=== PATIENT | male | born 1960 | race Caucasian/White ===

== ENCOUNTER 2019-01-31 15:08 | Inpatient (IN) | payer MEDICAID, OTHER ==
[~2019-01-31] VITALS: Ht 190.5 cm; Wt 91.0 kg
[2019-02-06 09:36] VITALS: BP 107/75
== END 2019-02-06 12:05 | disposition home or self-care (01) | DRG 224 ==
LOC: ED 17:44 → EDIP 18:37 → ED 18:52 → 5SO 19:52 → DCLOUNGE 02-06 11:46
PROVIDERS: ADMIT Internal Medicine; ATTEND Internal Medicine
PROC: 4A023N7 Measurement of Cardiac Sampling and Pressure, Left Heart, Percutaneous Approach (ICD-10-PCS; principal; 2019-02-04)
PROC: B2111ZZ Fluoroscopy of Multiple Coronary Arteries using Low Osmolar Contrast (ICD-10-PCS; 2019-02-04)
PROC: 0JH608Z Insertion of Defibrillator Generator into Chest Subcutaneous Tissue and Fascia, Open Approach (ICD-10-PCS; 2019-02-05)
PROC: 02HK3KZ Insertion of Defibrillator Lead into Right Ventricle, Percutaneous Approach (ICD-10-PCS; 2019-02-05)
PROC: 02H63KZ Insertion of Defibrillator Lead into Right Atrium, Percutaneous Approach (ICD-10-PCS; 2019-02-05)
DX: I44.2 Atrioventricular block, complete (principal); I50.21 Acute systolic (congestive) heart failure; Q21.1 Atrial septal defect; I42.9 Cardiomyopathy, unspecified; I47.1 Supraventricular tachycardia; D75.89 Other specified diseases of blood and blood-forming organs; I08.0 Rheumatic disorders of both mitral and aortic valves; N18.3 Chronic kidney disease, stage 3 (moderate); M79.89 Other specified soft tissue disorders; R55 Syncope and collapse; R71.8 Other abnormality of red blood cells; R94.39 Abnormal result of other cardiovascular function study; Z79.82 Long term (current) use of aspirin; Z79.899 Other long term (current) drug therapy; Z82.49 Family history of ischemic heart disease and other diseases of the circulatory system; Z87.891 Personal history of nicotine dependence; Z80.1 Family history of malignant neoplasm of trachea, bronchus and lung
CPT/HCPCS: 33249; 36415; 93017; 93458; 99285; J3490; 0399T; 71045; 71046; 78452; 80048; 80053; 80061; 82040; 82607; 83735; 83880; 84484; 85025; 85379; 93005; 93306; 96374; 99156; 99157; C1721; C1769; C1779; C1892; C1894; C1895; G0378; J0583; J0690; J1644; J1940; J2250; J2785; J3010; A9502; C9898; Q9967

== ENCOUNTER 2019-02-12 10:41 | Outpatient (CLI) | payer MEDICAID ==
[~2019-02-12 10:41] MED LIST: ACET325T26 PO; ASPI-515 PO; ATOR20TA37 PO; CARV6.2512 PO; FURO20TA3 PO; LISI5TAB7 PO; SPIR25TA5 PO
[2019-03-19] MEDS ORDERED: CARV12.52 PO (13:11)
[2019-03-19] MEDS ORDERED: FURO20TA3 PO (13:11)
== END 2019-02-12 23:59 | disposition home or self-care (01) ==
LOC: CFH 10:41
PROVIDERS: ATTEND Internal Medicine Cardiovascular Disease
DX: Z45.018 Encounter for adjustment and management of other part of cardiac pacemaker (principal); Z95.812 Presence of fully implantable artificial heart
CPT/HCPCS: 71046

== ENCOUNTER 2019-02-15 07:04 | Observation (INO) | payer MEDICAID ==
[~2019-02-15] VITALS: Ht 190.5 cm; Wt 95.6 kg
[2019-02-15] MEDS: SODIUM CHLORIDE 0.9% 1,000 ML IV SCH ×3 (07:38→23:38)
[2019-02-15 07:40] VITALS: BP 113/63
[2019-02-15 08:58] LABS: ANION GAP 8 mmol/L (5-15); CALCIUM 8.8 mg/dL (8.5-10.1); CHLORIDE 108 mmol/L (98-107); CREATININE 1.76 mg/dL (0.7-1.3)
[2019-02-15] MEDS ORDERED: MIDAZOLAM 1 MG/ML, 5ML ONE (09:06)
[2019-02-15] MEDS ORDERED: FENTANYL PF 100 MCG/2ML ONE ×2 (09:06→09:33)
[2019-02-15] MEDS ORDERED: CEFAZOLIN PMX 1GM/50ML 50 ML ONE (09:06)
[2019-02-15] MEDS ORDERED: CEFAZOLIN 1,000 MG ONE (09:07)
[2019-02-15] MEDS ORDERED: LIDOCAINE 2%, 20ML ONE (09:07)
[2019-02-15] MEDS ORDERED: MIDAZOLAM 1 MG/ML, 2ML ONE (09:33)
[2019-02-15] MEDS ORDERED: HOLD MEDICATION MC PRN (10:30)
[2019-02-15] MEDS ORDERED: ACETAMINOPHEN 325 MG TABLET PO PRN (10:30)
[2019-02-15] MEDS ORDERED: HYDROcodone/APAP 5/325 TABLET PO PRN (10:30)
[2019-02-15] MEDS ORDERED: ZOLPIDEM 5MG TABLET PO PRN (10:30)
[2019-02-15 13:20] VITALS: BP 107/65
[2019-02-15] MEDS: CEFAZOLIN PMX 1GM/50ML 50 ML IVPB SCH (17:01)
[2019-02-15] MEDS: CARVEDILOL 6.25 MG TABLET PO SCH (17:12)
[2019-02-15 17:15] VITALS: BP 113/77
[2019-02-15 19:00] VITALS: BP 124/74
[2019-02-15] MEDS: SODIUM CHLORIDE FLUSH 10ML SYR IVF SCH (20:50)
[2019-02-15] MEDS ORDERED: ATORVASTATIN 20 MG TABLET PO SCH (21:00)
[2019-02-15] MEDS: LISINOPRIL 5 MG TABLET PO SCH (21:30)
[2019-02-16 00:27] VITALS: BP 114/75
[2019-02-16] MEDS: CEFAZOLIN PMX 1GM/50ML 50 ML IVPB SCH ×2 (01:10→08:33)
[2019-02-16 05:49] VITALS: BP 116/77
[2019-02-16] MEDS: CARVEDILOL 6.25 MG TABLET PO SCH (05:51)
[2019-02-16 07:00] VITALS: BP 114/73
[2019-02-16] MEDS: SODIUM CHLORIDE 0.9% 1,000 ML IV SCH (07:10)
[2019-02-16] MEDS: LISINOPRIL 5 MG TABLET PO SCH (08:32)
[2019-02-16] MEDS: SODIUM CHLORIDE FLUSH 10ML SYR IVF SCH (08:33)
[2019-02-16] MEDS ORDERED: SPIRONOLACTONE 25 MG TABLET PO SCH (09:00)
[2019-02-16] MEDS ORDERED: FUROSEMIDE 20 MG TABLET PO SCH (09:00)
[2019-02-16] MEDS ORDERED: ASPIRIN 81 MG TABLET EC PO SCH (09:00)
[2019-03-19] MEDS ORDERED: CARV12.52 PO (13:11)
[2019-03-19] MEDS ORDERED: FURO20TA3 PO (13:11)
== END 2019-02-16 10:32 | disposition home or self-care (01) ==
LOC: CACL 07:04 → 5SO 10:38 → CACL 23:40 → 5SO 23:40 → DCLOUNGE 02-16 10:25
PROVIDERS: ADMIT Internal Medicine Cardiovascular Disease; ATTEND Internal Medicine Cardiovascular Disease
DX: T82.120A Displacement of cardiac electrode, initial encounter (principal); I42.9 Cardiomyopathy, unspecified; I44.1 Atrioventricular block, second degree; I50.21 Acute systolic (congestive) heart failure; R00.0 Tachycardia, unspecified; I51.7 Cardiomegaly; N18.3 Chronic kidney disease, stage 3 (moderate); R71.8 Other abnormality of red blood cells; I34.0 Nonrheumatic mitral (valve) insufficiency; Z95.810 Presence of automatic (implantable) cardiac defibrillator; Z13.6 Encounter for screening for cardiovascular disorders
CPT/HCPCS: 33215; 36415; 71045; 80048; 93005; 96365; 96366; 99156; 99157; G0378; J0690; J2250; J3010; J3490

== ENCOUNTER → 2019-08-31 | Outpatient (CLI) | payer MEDICAID ==
[~2019-08-31] MED LIST changes: +CARV12.52 PO
[2019-08-31 09:34] LABS: BASOPHILS # (AUTO) 0.04 x10^3/uL (0-0.1); BASOPHILS % (AUTO) 1 % (0-1); EOSINOPHILS # (AUTO) 0.23 x10^3/uL (0-0.4); EOSINOPHILS % (AUTO) 3 % (1-7); LYMPHOCYTES # (AUTO) 2.15 x10^3/uL (1-3.4); LYMPHOCYTES % (AUTO) 31 % (22-44); MD NO; MEAN CORPUSCULAR HEMOGLOBIN 32.1 pg (27.5-34.5); MEAN CORPUSCULAR VOLUME 94.4 fL (81-97); MEAN PLATELET VOLUME 7.1 fL (7.4-10.4); MONOCYTES # (AUTO) 0.52 x10^3/uL (0.2-0.8); MONOCYTES % (AUTO) 7 % (2-9); NEUTROPHILS # (AUTO) 4.09 x10^3/uL (1.8-6.8); NEUTROPHILS % (AUTO) 58 % (42-75); PLATELET COUNT 236 x10^3/uL (130-400); RED BLOOD COUNT 4.82 x10^6/uL (4.38-5.82); RED CELL DISTRIBUTION WIDTH 12.5 % (9.4-14.8)
[2019-08-31 09:40] LABS: ALANINE AMINOTRANSFERASE 33 U/L (12-78); ALBUMIN 3.9 g/dL (3.4-5.0); ANION GAP 4 mmol/L (5-15); CALCIUM 8.9 mg/dL (8.5-10.1); CHLORIDE 107 mmol/L (98-107); CHOLESTEROL, TOTAL 128 mg/dL (140-239); CREATININE 1.53 mg/dL (0.7-1.3)
[2019-08-31 09:43] LABS: ALKALINE PHOSPHATASE 59 U/L (45-117); BILIRUBIN,TOTAL 0.9 mg/dL (0.2-1.0); HDL CHOL % 33 % (26-37); HDL CHOLESTEROL (DIRECT) 42 mg/dL (40-60); LDL CHOLESTEROL,CALCULATED 71 mg/dL (54-169); LDL/HDL RATIO 1.7 (0.5-3.0); TOTAL PROTEIN 7.3 g/dL (6.4-8.2); TRIGLYCERIDES 73 mg/dL (50-200); VLDL CHOLESTEROL 15 mg/dL (0-25)
== END | disposition home or self-care (01) ==
LOC: LAB 08:47
PROVIDERS: ATTEND Internal Medicine Cardiovascular Disease
DX: I10 Essential (primary) hypertension (principal); I42.9 Cardiomyopathy, unspecified; I47.2 Ventricular tachycardia; N52.8 Other male erectile dysfunction; Z95.810 Presence of automatic (implantable) cardiac defibrillator
CPT/HCPCS: 36415; 80053; 80061; 85025

== ENCOUNTER 2019-10-24 08:25 | Outpatient (CLI) | payer MEDICAID | END 2019-10-24 23:59 | disposition home or self-care (01) | LOC: CFH 08:25 | PROVIDERS: ATTEND Internal Medicine Cardiovascular Disease | DX: I08.8 Other rheumatic multiple valve diseases (principal); I25.3 Aneurysm of heart | CPT/HCPCS: 93306; 93356 ==

== ENCOUNTER → 2020-10-15 | Outpatient (CLI) | payer MEDICAID ==
[~2020-10-15] MED LIST changes: -ASPI-515 PO; +ASPI-963 PO
== END | disposition home or self-care (01) ==
LOC: CVU 06:43
PROVIDERS: ATTEND Internal Medicine Cardiovascular Disease
DX: I08.3 Combined rheumatic disorders of mitral, aortic and tricuspid valves (principal); I42.9 Cardiomyopathy, unspecified
CPT/HCPCS: 93306; 93356

== ENCOUNTER 2020-11-11 18:54 | Emergency (ER) | payer MEDICAID ==
[~2020-11-11] VITALS: Ht 190.5 cm; Wt 90.6 kg
--- NOTE | 2020-11-11 19:29 | NUR ---
PT AMBULATORY TO ROOM 13 W/ C/O N/V/D. PT STATES HE IS HAVING 10-15 BM'S PER DAY. EMESIS STARTED TODAY 3-4 TIMES. PT DENIES ABD PAIN. STATES HE WAS SEEN HERE A FEW DAYS AGO FOR SAME. PT RESTING ON MARK [facility]. NADN. MONITORS APPLIED. VSS. WARM BLANKET PROVIDED.
[2020-11-11] MEDS ORDERED: FAMOTIDINE 20 MG/2 ML ONE (20:26)
[2020-11-11] MEDS ORDERED: ONDANSETRON 2MG/ML, 2ML ONE ×2 (20:26→23:17)
[2020-11-11] MEDS ORDERED: ONDANSETRON 2MG/ML, 2ML IVPush ONE ×2 (20:30→23:30)
[2020-11-11] MEDS ORDERED: SODIUM CHLORIDE FLUSH 10ML SYR IVF ONE (20:30)
[2020-11-11] MEDS ORDERED: FAMOTIDINE 20 MG/2 ML IVPush ONE (20:30)
[2020-11-11] MEDS ORDERED: SODIUM CHLORIDE 0.9% 1,000ML IVBOLUS ONE ×2 (20:30)
[2020-11-11 20:59] LABS: BASOPHILS % (AUTO) 1 % (0-1); EOSINOPHILS % (AUTO) 0 % (1-7); LYMPHOCYTES % (AUTO) 23 % (22-44); MD NO; MEAN CORPUSCULAR HEMOGLOBIN 31.1 pg (27.5-34.5); MEAN CORPUSCULAR HGB CONC 33.6 g/dL (33.2-36.2); MEAN PLATELET VOLUME 7.7 fL (7.4-10.4); MONOCYTES % (AUTO) 10 % (2-9); NEUTROPHILS % (AUTO) 66 % (42-75); PLATELET COUNT 136 x10^3/uL (130-400); RED CELL DISTRIBUTION WIDTH 13.2 % (9.4-14.8)
--- NOTE | 2020-11-11 21:03 | NUR ---
REPORT GIVEN TO WALTER CASTRO.
[2020-11-11 21:08] LABS: ALBUMIN 3.3 g/dL (3.4-5.0); ANION GAP 4 mmol/L (5-15); CALCIUM 7.9 mg/dL (8.5-10.1); CHLORIDE 104 mmol/L (98-107)
[2020-11-11 21:12] LABS: ALANINE AMINOTRANSFERASE 31 U/L (12-78); ALKALINE PHOSPHATASE 46 U/L (45-117); BILIRUBIN,TOTAL 0.4 mg/dL (0.2-1.0); CREATININE 1.31 mg/dL (0.7-1.3); TOTAL PROTEIN 6.7 g/dL (6.4-8.2)
[2020-11-11 22:26] VITALS: BP 109/56
--- NOTE | 2020-11-11 22:27 | NUR ---
PT AMBULATES TO RESTROOM WITH STEADY GAIT.
== END 2020-11-12 00:12 | disposition home or self-care (01) ==
LOC: ED 20:22
DX: R11.2 Nausea with vomiting, unspecified (principal); E86.0 Dehydration; R19.7 Diarrhea, unspecified; I11.0 Hypertensive heart disease with heart failure; I50.9 Heart failure, unspecified; Z95.0 Presence of cardiac pacemaker
CPT/HCPCS: 36415; 80053; 83690; 85025; 96361; 96374; 96375; 96376; 99284; J2405; J7030

== ENCOUNTER 2021-02-04 17:18 | Outpatient (CLI) | payer MEDICAID | END 2021-02-04 23:59 | disposition home or self-care (01) | LOC: LAB 17:18 | PROVIDERS: ATTEND Internal Medicine | DX: Z02.9 Encounter for administrative examinations, unspecified (principal) ==

== ENCOUNTER 2021-02-22 20:37 | Observation (INO) | payer MEDICAID ==
[~2021-02-22] VITALS: Ht 190.5 cm; Wt 88.0 kg
--- NOTE | 2021-02-22 20:53 | NUR ---
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 THEY WILL BE SENDING REP FOR PACER INTERRIGATION.
[2021-02-22] MEDS ORDERED: DOLU1TAB2 PO (21:10)
--- NOTE | 2021-02-22 21:10 | NUR ---
pt states he was getting out of shower x 30 min ago and aicd went off x 1,
--- NOTE | 2021-02-22 21:10 | NUR ---
PAD TUFTER: BIOTRONIC REP CALLED BACK STATING THEY WILL BE HERE SHORTLY.
[2021-02-22 21:39] LABS: ALANINE AMINOTRANSFERASE 50 U/L (12-78); ALBUMIN 3.2 g/dL (3.4-5.0); ANION GAP 6 mmol/L (5-15); CALCIUM 8.2 mg/dL (8.5-10.1); CHLORIDE 104 mmol/L (98-107); CREATININE 1.25 mg/dL (0.7-1.3)
[2021-02-22 21:40] LABS: BASOPHILS % (AUTO) 1 % (0-1); EOSINOPHILS % (AUTO) 3 % (1-7); LYMPHOCYTES % (AUTO) 33 % (22-44); MEAN CORPUSCULAR HEMOGLOBIN 29.8 pg (27.5-34.5); MEAN CORPUSCULAR HGB CONC 33.1 g/dL (33.2-36.2); MEAN PLATELET VOLUME 7.2 fL (7.4-10.4); MONOCYTES % (AUTO) 13 % (2-9); NEUTROPHILS % (AUTO) 50 % (42-75); PLATELET COUNT 202 x10^3/uL (130-400); RED BLOOD COUNT 4.39 x10^6/uL (4.38-5.82); RED CELL DISTRIBUTION WIDTH 13.7 % (9.4-14.8)
[2021-02-22 21:43] LABS: ALKALINE PHOSPHATASE 79 U/L (45-117); BILIRUBIN,TOTAL 0.4 mg/dL (0.2-1.0); TROPONIN I < 0.015 ng/mL (0.000-0.045)
--- NOTE | 2021-02-22 21:54 | NUR ---
TRANSPORTATION PLANNER: BIOTRONIC REP AT BS AT THIS TIME.
--- NOTE | 2021-02-22 21:58 | NUR ---
interagator here for pacemaker interagation
--- NOTE | 2021-02-22 23:10 | NUR ---
interagation complete md at bedside
--- NOTE | 2021-02-22 23:37 | NUR ---
pt given food npo after midnight
--- NOTE | 2021-02-23 00:53 | NUR ---
report to natalya
--- NOTE | 2021-02-23 01:01 | NUR ---
report from Nicki WATSON
[2021-02-23] MEDS ORDERED: ONDANSETRON 2MG/ML, 2ML IVPush PRN (01:30)
[2021-02-23] MEDS ORDERED: LABETALOL 5MG/ML, 20ML IVPush PRN (01:30)
[2021-02-23] MEDS ORDERED: TRAZODONE 50MG TABLET PO PRN (01:30)
[2021-02-23] MEDS ORDERED: ACETAMINOPHEN 325 MG TABLET PO PRN (01:30)
--- NOTE | 2021-02-23 02:05 | NUR ---
PT RESTING IN BED, VSS, NADN
--- NOTE | 2021-02-23 05:14 | NUR ---
pt ambulatory to restroom and placed in hospital bed
--- NOTE | 2021-02-23 06:56 | NUR ---
Report to Giuliana WATSON
--- NOTE | 2021-02-23 06:58 | NUR ---
RECEIVED REPORT FROM ARACELIS WATSON. PT RESTING COMFORTABLY IN BED, RESPONDS APPROP TO STAFF WITH VERBAL STIMULI, NAD/VSS, NO MEEDS AT THIS TIME, CALL LIGHT WITHIN REACH.
--- NOTE | 2021-02-23 08:02 | NUR ---
PT RESTING COMFORTABLY IN BED, NAD WITH EQUAL CHEST RISE & FALL/VSS, NO NEEDS AT THIS TIME, CALL LIGHT WITHIN REACH.
[2021-02-23] MEDS ORDERED: CARVEDILOL 12.5 MG TABLET ONE (08:52)
[2021-02-23] MEDS ORDERED: LISINOPRIL 5 MG TABLET ONE (08:53)
[2021-02-23] MEDS ORDERED: SPIRONOLACTONE 25 MG TABLET PO SCH (09:00)
[2021-02-23] MEDS ORDERED: CARVEDILOL 12.5 MG TABLET PO SCH (09:00)
[2021-02-23] MEDS ORDERED: LISINOPRIL 5 MG TABLET PO SCH (09:00)
--- NOTE | 2021-02-23 09:00 | NUR ---
PT UPRIGHT IN BED TEXTING ON PHONE WITH TV ON, RESPONDS APPROP TO STAFF, NAD, REMAINS NPO, NO NEEDS AT THIS TIME, CALL LIGHT WITHIN REACH.
--- NOTE | 2021-02-23 09:20 | NUR ---
Pt to be admitted to [facility], room 522-1. Report called to BILLY.
[2021-02-23 09:45] VITALS: BP 123/61
[2021-02-23] MEDS ORDERED: ATORVASTATIN 20 MG TABLET PO SCH (21:00)
== END 2021-02-23 16:39 | disposition home or self-care (01) ==
LOC: ED 21:41 → EDIP 23:34 → INTOOBSV 23:34 → 5SO 02-23 09:37
PROVIDERS: ADMIT Family Medicine; ATTEND Internal Medicine
DX: T82.110A Breakdown (mechanical) of cardiac electrode, initial encounter (principal); I13.0 Hypertensive heart and chronic kidney disease with heart failure and stage 1 through stage 4 chronic kidney disease, or unspecified chronic kidney disease; I50.23 Acute on chronic systolic (congestive) heart failure; N18.30 Chronic kidney disease, stage 3 unspecified; D64.9 Anemia, unspecified; I42.0 Dilated cardiomyopathy; I25.5 Ischemic cardiomyopathy; Y71.2 Prosthetic and other implants, materials and accessory cardiovascular devices associated with adverse incidents; Z79.899 Other long term (current) drug therapy; Z21 Asymptomatic human immunodeficiency virus [HIV] infection status; Z79.82 Long term (current) use of aspirin
CPT/HCPCS: 36415; 71045; 80053; 83735; 84484; 85025; 93005; 99285; G0378

== ENCOUNTER 2021-02-24 13:45 | Observation (INO) | payer MEDICAID ==
[~2021-02-24] VITALS: Ht 190.5 cm; Wt 90.2 kg
[~2021-02-24 13:45] MED LIST changes: +DOLU1TAB2 PO
[2021-02-24] MEDS: SODIUM CHLORIDE 0.9% 1,000 ML IV SCH ×2 (14:30→22:30)
[2021-02-24] MEDS ORDERED: CEFAZOLIN PMX 1GM/50ML 50 ML IVPB ONE (14:30)
[2021-02-24 14:32] VITALS: BP 126/74
[2021-02-24] MEDS ORDERED: PLEASE ENTER HEIGHT AND WEIGHT MC SCH (15:00)
[2021-02-24] MEDS ORDERED: CEFAZOLIN PMX 1GM/50ML 50 ML ONE (15:25)
[2021-02-24] MEDS ORDERED: CEFAZOLIN 1,000 MG ONE ×3 (15:25→15:55)
[2021-02-24] MEDS ORDERED: LIDOCAINE 2%, 20ML ONE (15:25)
[2021-02-24] MEDS ORDERED: PROPOFOL 50 ML ONE (15:47)
[2021-02-24] MEDS ORDERED: FENTANYL PF 250 MCG/5ML ONE (15:54)
[2021-02-24] MEDS ORDERED: ONDANSETRON 2MG/ML, 2ML ONE (16:48)
[2021-02-24] MEDS ORDERED: PROPOFOL 10 MG/ML, 20ML ONE ×3 (16:49)
[2021-02-24] MEDS ORDERED: ZOLPIDEM 5MG TABLET PO PRN (17:30)
[2021-02-24] MEDS ORDERED: OXYcodone 5 MG/5 ML ORAL.SOL UDC PO PRN (17:30)
[2021-02-24] MEDS ORDERED: LABETALOL 5MG/ML, 20ML IV PRN (17:30)
[2021-02-24] MEDS ORDERED: morphine SULFATE 10 MG/ML, 1ML IVPush PRN (17:30)
[2021-02-24] MEDS ORDERED: FENTANYL PF 100 MCG/2ML IV PRN (17:30)
[2021-02-24] MEDS ORDERED: MEPERIDINE/PF 25MG/0.5ML IVPush PRN (17:30)
[2021-02-24] MEDS ORDERED: HYDROcodone/APAP 5/325 TABLET PO PRN (17:30)
[2021-02-24] MEDS ORDERED: EPHEDRINE 50 MG/ML, 1ML IM PRN (17:30)
[2021-02-24] MEDS ORDERED: ACETAMINOPHEN 325 MG TABLET PO PRN ×3 (17:30)
[2021-02-24] MEDS ORDERED: EPHEDRINE 50 MG/ML, 1ML IVPush PRN (17:30)
[2021-02-24] MEDS ORDERED: DIAZEPAM 5 MG/ML, 2ML IVPush PRN (17:30)
[2021-02-24] MEDS ORDERED: HOLD MEDICATION MC PRN (17:30)
[2021-02-24] MEDS ORDERED: DIPHENHYDRAMINE 50 MG/ML, 1ML IVPush PRN (17:30)
[2021-02-24] MEDS ORDERED: ONDANSETRON 2MG/ML, 2ML IVPush PRN (17:30)
[2021-02-24] MEDS ORDERED: PROMETHAZINE 25 MG/ML, 1ML IVPush PRN (17:30)
[2021-02-24 19:46] VITALS: BP 106/68
[2021-02-24] MEDS: CARVEDILOL 12.5 MG TABLET PO SCH (20:22)
[2021-02-24] MEDS: LISINOPRIL 5 MG TABLET PO SCH (20:23)
[2021-02-24] MEDS: SODIUM CHLORIDE FLUSH 10ML SYR IVF SCH (20:25)
[2021-02-24] MEDS ORDERED: ATORVASTATIN 20 MG TABLET PO SCH (21:00)
[2021-02-25] MEDS: CEFAZOLIN PMX 1GM/50ML 50 ML IVPB SCH ×2 (01:13→08:47)
[2021-02-25 01:15] VITALS: BP 113/66
[2021-02-25] MEDS ORDERED: DOVATO PO SCH (05:00)
[2021-02-25] MEDS: CARVEDILOL 12.5 MG TABLET PO SCH (05:09)
[2021-02-25] MEDS: SODIUM CHLORIDE 0.9% 1,000 ML IV SCH (05:12)
[2021-02-25] MEDS: DOVATO HOMEMEDPO SCH ×2 (05:16→08:46)
[2021-02-25] MEDS ORDERED: DOVATO MC SCH (05:30)
[2021-02-25 08:40] VITALS: BP 109/67
[2021-02-25] MEDS: SODIUM CHLORIDE FLUSH 10ML SYR IVF SCH (08:46)
[2021-02-25] MEDS: LISINOPRIL 5 MG TABLET PO SCH (08:47)
[2021-02-25] MEDS ORDERED: ASPIRIN 81 MG TABLET EC PO SCH (09:00)
[2021-02-25] MEDS ORDERED: SPIRONOLACTONE 25 MG TABLET PO SCH (09:00)
[2021-02-26] MEDS ORDERED: FUROSEMIDE 20 MG TABLET PO SCH (09:00)
== END 2021-02-25 11:21 | disposition home or self-care (01) ==
LOC: CACL 13:45 → ORIP 17:05 → 5SO 18:22
PROVIDERS: ADMIT Internal Medicine Cardiovascular Disease; ATTEND Internal Medicine Cardiovascular Disease
DX: T82.118A Breakdown (mechanical) of other cardiac electronic device, initial encounter (principal); I47.2 Ventricular tachycardia; I42.0 Dilated cardiomyopathy; I12.9 Hypertensive chronic kidney disease with stage 1 through stage 4 chronic kidney disease, or unspecified chronic kidney disease; N18.30 Chronic kidney disease, stage 3 unspecified; Z79.82 Long term (current) use of aspirin; Z79.899 Other long term (current) drug therapy
CPT/HCPCS: 33216; 33244; 36005; 71045; 93005; 96365; 96366; C1892; C1894; C1895; G0378; J0690; J2405; J2704; J3010; J3490; Q9967